=== PATIENT | female | born 1970 | race Caucasian/White ===

== ENCOUNTER → 2017-07-27 09:50 | Outpatient (CLI) | payer MEDICAID, SELFPAY ==
--- NOTE | 2017-07-27 09:56 | MM_ITS ---
MM Dig screening mamm BI w/CAD CAD Screening COMPARISON: 09/29/2015 INDICATION: Screening mammogram, screening for breast cancer ORDERING PHYSICIAN: Angelal Ruiz PATIENT AGE: 46 years TECHNIQUE: Standard CC and MLO images were obtained. R2 CAD reviewed. FINDINGS: There are scattered bilateral benign-appearing calcifications which are unchanged IMPRESSION: Benign findings, no evidence of malignancy BI-RADS Category: 2 Benign Finding(s) RECOMMENDED FOLLOW-UP: 1YR - 1 YEAR FOLLOW-UP (A letter has been sent to the patient regarding results of the study.)
== END ==
PROVIDERS: Family Provider Family Medicine; PCP Family Medicine; Visit Provider Student in an Organized Health Care Education/Training Program
DX: Z12.31 Encounter for screening mammogram for malignant neoplasm of breast (principal)
CPT/HCPCS: 77067

== ENCOUNTER → 2017-11-01 09:03 | Outpatient (CLI) | payer MEDICAID, SELFPAY ==
--- NOTE | 2017-11-01 09:03 | XR_ITS ---
Bilateral Weightbearing Ankle 3 views. HISTORY: Pain ORDERING PHYSICIAN: Ashley Dan DPM PATIENT AGE: 47 years COMPARISON: None FINDINGS: No fracture or dislocation. No lytic or blastic change. There is normal mineralization.. The joint spaces are well-preserved. No significant degenerative/arthritic changes. No erosive changes evident. The talar dome has an unremarkable appearance and the joint space is well-preserved IMPRESSION: Negative ankle, no acute finding
--- NOTE | 2017-11-01 09:03 | XR_ITS ---
XR ankle wt bearing LT min 3V HISTORY: Left ankle pain ORDERING PHYSICIAN: Ashley Dan DPM PATIENT AGE: 47 years COMPARISON: None FINDINGS: There is a bone plate over the distal shaft of the fibula. No acute fracture or dislocation evident. The ankle joint space is well-preserved. Small calcaneal spur is noted. IMPRESSION: Prior ORIF of the distal fibula with no acute finding
== END ==
PROVIDERS: Visit Provider Podiatrist
DX: M25.579 Pain in unspecified ankle and joints of unspecified foot (principal)
CPT/HCPCS: 73610

== ENCOUNTER 2018-01-11 09:00 | Outpatient (RCR) | payer OTHER, SELFPAY ==
--- NOTE | 2017-12-27 10:13 | HMH.PTOPEV ---
PT Outpatient Evaluation Rehab PT Outpatient Evaluation Start: 12/27/17 09:53 Freq: Status: Active Protocol: Document 12/27/17 09:54 DELIA (Rec: 12/27/17 10:13 DELIA [id number]) Electronically Signed By Abdulkadir Patrick, PT 12/27/17 09:54 Outpatient Therapy Subjective History Subjective History Pt is a 47 year old female presenting to outpatient PT with reports of L ankle pain S /P L ankle eversion sprain after an incident while folding laundry at home. Pt reports hx of L ankle fracture requiring ORIF to distal fibula in 1996. Pt recently began oral anti-inflammatory medication that has provided some significant relief. Chief Complaint Pain Swelling Symptom Type Sharp Symptoms Relieved By Rest/Positioning Ice Prescription Meds Symptoms Aggravated By Standing Physical Activity Walking Prior Functional Limitations None Current Functional Limitations Housework Standing Squatting Recreation Activity Walking Stairs Balance Level of pain today (0-10) 2 Pain scale - at its best (0-10) 0 Pain scale - at its worst (0-10) 8 Ankle/Foot Eval Gait Observation General Gait Pattern Observation Antalgic Gait Assistive Device Ambulation Assistive Device None Palpation Tenderness left Ankle/Foot Palpation Findings Tenderness Ankle/Foot Palpation Overall Comment achilles ATF TTP positive ROM right Ankle/Foot Dorsiflexion w/Knee Flexed 18 Active Range of Motion (degrees) Ankle/Foot Plantar Flexion Active Range 60 of Motion (degrees) Ankle/Foot Eversion Active Range of 25 Motion (degrees) Ankle/Foot Inversion Active Range of 35 Motion (degrees) left Ankle/Foot Dorsiflexion w/Knee Flexed 11 Active Range of Motion (degrees) Ankle/Foot Plantar Flexion Active Range 60 of Motion (degrees) Ankle/Foot Eversion Active Range of 22 Motion (degrees) Ankle/Foot Inversion Active Range of 30 Motion (degrees) Ankle/Foot ROM Limitations Soft Tissue Tightness MMT bilateral Ankle Dorsiflexion Streng
== END 2018-01-11 09:01 | disposition home or self-care (01) ==
LOC: PT 09:00
PROVIDERS: Family Provider Family Medicine; PCP Family Medicine; Visit Provider Podiatrist
DX: S93.402A Sprain of unspecified ligament of left ankle, initial encounter (principal)
CPT/HCPCS: 97110; 97112; 97163

== ENCOUNTER → 2018-06-23 08:42 | Outpatient (CLI) | payer OTHER, SELFPAY ==
--- NOTE | 2018-06-23 08:52 | US_ITS ---
MM Dig mamm DX unilat LT CAD, US breast LT complete INDICATION: Palpable abnormality left breast in the axilla ORDERING PHYSICIAN: Sara Valentin PATIENT AGE: 47 years COMPARISON: 07/27/2017, 09/29/2015 TECHNIQUE: Standard images left breast along with left breast ultrasound FINDINGS: Left breast ultrasound: There is a 19 x 16 x 8 mm isoechoic subcutaneous nodule in the left axilla. This area is very difficult to image mammographically. There is relative homogeneous echogenicity. This could represent a sebaceous cyst. Please correlate with clinical findings. Small nodes are present in the axilla. Review of the left breast also demonstrates a 5 mm hypoechoic area at the 10:00 region near the nipple. Immediately deep to this nodule is some enhanced through transmission of sound with decreased through transmission of sound or posterior to the nodule. Left-sided mammogram. Asymmetric density in the left axilla not completely imaged by mammography. May correspond to the palpable abnormality. The remaining breast has unremarkable appearance. IMPRESSION: 19 x 16 x 8 mm isoechoic nodule in the axilla corresponding to the palpable abnormality. Ultrasound findings are nonspecific. This could be due to a sebaceous cyst or lipoma. There are difficult to images on the mammogram. Please correlate with clinical findings and physical exam. Suggest 3 month sonographic follow-up and correlation with physical exam. Negative mammogram and negative ultrasound should not preclude performing biopsy with suspicious palpable abnormalities . BI-RADS Category: 3 Probably Benign Finding Short Term Follow-up RECOMMENDED FOLLOW-UP: 3M - 3 MONTH FOLLOWUP (A letter has been sent to the patient regarding results of the study.)
== END ==
PROVIDERS: PCP Nurse Practitioner Family; Visit Provider Nurse Practitioner Family
DX: L72.3 Sebaceous cyst (principal); R59.0 Localized enlarged lymph nodes; M79.622 Pain in left upper arm
CPT/HCPCS: 76641; 77065

== ENCOUNTER → 2018-09-25 09:38 | Outpatient (CLI) | payer OTHER, SELFPAY ==
--- NOTE | 2018-09-25 09:45 | US_ITS ---
US extremity LT limited HISTORY: Palpable abnormality in the left axilla ITS.REASON: re-evaluate left axillary lesion ORDERING PHYSICIAN: Michael Disla MD PATIENT AGE: 48 years COMPARISON: 06/23/2018 FINDINGS: There is an oval isoechoic to slightly hypoechoic area in the left axilla measuring 14 x 18 x 6 mm. This does appear to elongate and may represent a lipoma. Small nodes are present in the axilla. IMPRESSION: Overall no change in the ISO to hypoechoic nodular subcutaneous area in the left axilla possibly due to a lipoma.
== END ==
PROVIDERS: PCP Family Medicine; Visit Provider Surgery
DX: L72.3 Sebaceous cyst (principal)
CPT/HCPCS: 76882

== ENCOUNTER 2022-06-20 18:37 | Emergency (ER) | payer SELFPAY ==
[2022-06-20] VITALS (7 sets, daily range): BP systolic 122–143; BP diastolic 80–93; PULSE 65–76; RESP 18; TEMP 36.5; O2SAT 92–98; BMI 30.9
[2022-06-20 18:56] LABS: Coronavirus 19, PCR Not Detected (NotDetected); Influenza A, PCR Not Detected (NotDetected); Influenza B, PCR Not Detected (NotDetected)
--- NOTE | 2022-06-20 20:57 | XR_ITS ---
PROCEDURE INFORMATION: Exam: XR Chest Exam date and time: 06/20/2022 10:33 PM Age: 51 years old Clinical indication: Fever TECHNIQUE: Imaging protocol: Radiologic exam of the chest. Views: 2 views. COMPARISON: No relevant prior studies available. FINDINGS: Lungs: Focal density within the right upper lung zone on the PA view projecting over the medial clavicle separate from the anterior costochondral junction of the 1st right rib. The lateral view demonstrates a rounded density anterior to the spine within the lower lung zone. CT scan performed of the abdomen and pelvis today included this region and does not demonstrate a focal abnormality. Pleural spaces: Unremarkable. No pleural effusion. No pneumothorax. Heart/Mediastinum: Unremarkable. No cardiomegaly. Vasculature: Unremarkable. Bones/joints: Unremarkable. IMPRESSION: Small density projecting over the medial right clavicle may represent an inflammatory focus or nodule. Correlation with prior imaging of the chest is recommended. If there is no prior imaging, CT is recommended.
--- NOTE | 2022-06-20 20:57 | PC.NURSE ---
Dr. Frazier at
--- NOTE | 2022-06-20 21:00 | CT_ITS ---
PROCEDURE INFORMATION: Exam: CT Abdomen And Pelvis With Contrast Exam date and time: 06/20/2022 10:49 PM Age: 51 years old Clinical indication: Vomiting; Additional info: Abd pain TECHNIQUE: Imaging protocol: Computed tomography of the abdomen and pelvis with contrast. Radiation optimization: All CT scans at this facility use at least one of these dose optimization techniques: automated exposure control; mA and/or kV adjustment per patient size (includes targeted exams where dose is matched to clinical indication); or iterative reconstruction. Contrast material: ISOVUE; Contrast volume: 75 ml; Contrast route: IV; COMPARISON: CR XR CHEST 2V 06/20/2022 10:33 PM FINDINGS: Lungs: Linear densities at the lung bases either representing scarring or subsegmental atelectasis. Liver: Severe hepatic steatosis is evident. Gallbladder and bile ducts: The gallbladder is absent. There is no biliary ductal dilation. Pancreas: Normal. No ductal dilation. Spleen: Normal. No splenomegaly. Adrenal glands: Normal. No mass. Kidneys and ureters: Normal. No hydronephrosis. Stomach and bowel: Unremarkable. No obstruction. No mucosal thickening. Appendix: No evidence of appendicitis. Intraperitoneal space: Unremarkable. No free air. No significant fluid collection. Vasculature: Unremarkable. No abdominal aortic aneurysm. Lymph nodes: Unremarkable. No enlarged lymph nodes. Urinary bladder: Unremarkable as visualized. Reproductive: Unremarkable as visualized. Bones/joints: Unremarkable. No acute fracture. Soft tissues: There is a prominent upper abdominal fat containing midline ventral hernia. IMPRESSION: 1. There is no acute process within the abdomen pelvis. 2. Prominent fat containing midline ventral hernia in the upper abdomen. 3. Severe hepatic steatosis. 4. Other findings as detailed.
--- NOTE | 2022-06-20 21:00 | HMH.EDHA ---
Discharge Plan Disposition Patient Disposition: Home, Self-Care Prescriptions Prescriptions: New ondansetron HCl 4 mg Tablet 4 mg PO Q8H PRN (Reason: Nausea) Qty: 20 0RF No Action ferrous sulfate 325 mg (65 mg iron) tablet 325 mg PO DAILY 30 Days Qty: 30 Label Comments: amoxicillin 875 mg tablet 875 mg PO BID 10 Days Qty: 20 0RF Referrals Follow up/Referrals: Lesly Alcala MD [Primary Care Provider] - See instructions Clinical Impressions Clinical Impression: Gastroenteritis Instructions Patient Instructions: DI for Vomiting -- Adult Discharge ED Provider: Brandyn Frazier Headache HPI General Chief Complaint: Headache Stated Complaint: abdominal pain Time Seen by Provider: 06/20/22 21:00 Mode of Arrival: Ambulatory Source of Information: Patient, Relative and Medical Record Limitations: No Limitations Description of Symptoms (Recalled from ER Triage Doc. by RN): pt states she has had fever, body aches, headache, tired, and vomiting for 3 days History of Present Illness HPI Narrative: over the last few days with vomiting and fever with abd pain - no diarrhea - with dec po intake Onset (ago): day(s) Related Data Home Medications Medication Instructions Recorded Confirmed ferrous sulfate 325 mg (65 mg 325 mg PO DAILY MAINTENANCE 30 11/01/17 02/23/19 iron) tablet days ##30 Previous Rx's Medication Instructions Recorded amoxicillin 875 mg tablet 875 mg PO BID 10 days #20 tabs 02/23/19 ondansetron HCl 4 mg tablet 4 mg PO Q8H PRN Nausea #20 tabs 06/21/22 Allergies Allergy/AdvReac Type Severity Reaction Status Date / Time No Known Allergies Allergy Verified 02/23/19 16:08 [facility] History Hepatitis A Screen Attestation statement:: This patient has been screened for Hepatitis A risk factors. I have reviewed the patient's past medical history: Yes Medical History: Denies: Asthma, Cancer, Chronic Obstructive Pulmonary Disease (COPD), Diabetes Mellitus Type 1, Diabetes Mellitus Type 2, Hyperlipidemia or Hypertension Laterality Cases: Left: Other Other Surgeries: Yes Cholecystectomy and Other Amputation: No Fractures: Yes Social History Smoking Status: Never smoker # Packs/Day (cigarettes): 0 #Yrs smoked (if former smoker): 0 Alcohol Intake: never Alcohol Intake Frequency:: other Substance Use Type: denies use Occupational Status: other Housing: house Household Members: family Family Hx:: Cancer and Diabetes PFSH PFSH Social History Smoking Status: Never smoker alcohol intake: never substance use type: denies use current occupational status: other Travel in the last 8 weeks: None household members: family housing: house ROS Obtained: Yes All systems reviewed & no additional complaints except as documented Physical Exam General General appearance: alert Head Head exam: normocephalic Eye Eye exam: Present PERRL and EOMI ENT ENT exam: Present mucous membranes dry Neck Neck exam: Present trachea midline Respiratory Respiratory exam: Present normal lung sounds bilaterally Cardiovascular Cardiovascular exam: Present regular rate Abdominal Exam Abdominal exam: Present soft; Absent tenderness or guarding Extremities Exam Extremities exam: Present normal inspection Neurological Exam Neurological exam: Present alert, oriented X3 and CN II-XII intact Psychiatric Psychiatric exam: Present normal affect Skin Skin exam: Absent intact Medical Decision Making Medical Records Medical records reviewed: Yes I reviewed the patient's medical records. Samy Inquiry Pt receiving controlled substance: No Vital Signs: 06/20/22 18:49 06/20/22 19:00 06/20/22 19:30 Temperature 97.7 F Temperature Source Oral Pulse Rate 72 70 Pulse Rate [Right Radial] 76 Respiratory Rate 18 Blood Pressure 133/82 122/80 Blood Pressure [Right Arm] 139/87 Blood Pressure Mean [Right Arm] 104 Blood Pressure Source [Right Arm] Automatic Cuff Blo
[2022-06-20 22:00] LABS: Basophils % 0.4 % (0.1-2.0); Eosinophils % 0.2 % (0.1-12.0); Hematocrit 41.2 % (37.0-47.0); Hemoglobin 13.6 g/dL (12.2-16.2); Lymphocytes # 1.2 K/mm3 (0.7-4.5); Lymphocytes % 12.1 % (10-50); Mean Corpuscular HGB Conc 33.1 g/dL (31.8-35.4); Mean Corpuscular Hemoglobin 27.7 pg (27.0-31.2); Mean Corpuscular Volume 83.8 fl (81-99); Mean Platelet Volume 9.4 fl (7.4-10.4); Monocytes # 0.7 K/mm3 (0.1-1.0); Neutrophils # 7.8 K/mm3 (1.8-7.8); Neutrophils % 80.2 % (37.0-80.0); Platelet Count 178 K/mm3 (142-424); Red Blood Count 4.91 M/mm3 (4.20-5.40); Red Cell Distribution Width 14.9 % (11.5-17.5); White Blood Count 9.7 K/mm3 (4.8-10.8)
[2022-06-20 22:14] LABS: Chloride 99 mmol/L (98-107)
[2022-06-20 22:15] LABS: Potassium 3.8 mmoL/L (3.5-5.1); Sodium 137 mmol/L (136-145)
[2022-06-20 22:16] LABS: Lipase 67 U/L (23-300)
[2022-06-20 22:17] LABS: Alanine Aminotransferase 28 U/L (12-78); Amylase 61 U/L (30-110); Aspartate Amino Transferase 39 U/L (14-36); Blood Urea Nitrogen 13 mg/dl (7-17); Creatinine Clearance Estimated 156 mL/min (50-200); Estimated Glomerular Filt Rate 106 ml/min (>60); GFR (African American) 129 ML/MIN (>60)
[2022-06-20 22:18] LABS: Albumin Level 4.4 g/dl (3.5-5.0); Albumin/Globulin Ratio 1.3 (1.1-1.8); Alkaline Phosphatase 76 U/L (38-126); Anion Gap 12.8 mEq/L (5-15); Bilirubin,Total 0.8 mg/dl (0.2-1.3); Calcium 8.8 mg/dl (8.4-10.2); Carbon Dioxide 29 mmol/L (22.0-30.0); Globulin 3.5 g/dL (1.3-3.2); Glucose 107 mg/dl (74-100); Total Protein,Serum 7.9 g/dl (6.3-8.2)
--- NOTE | 2022-06-20 22:41 | PC.NURSE ---
Pt gone to RAD
[2022-06-20 23:46] LABS: Microscopic, Urine URINE MICROSCOPIC (MICROSCOPIC)
[2022-06-20 23:47] LABS: Appearance,Urine CLEAR (Clear); Bilirubin,Urine Negative (Negative); Blood, Urine TRACE-I (Negative); Color,Urine YELLOW (Yellow); Glucose,Urine (UA) Negative (Negative); Ketones,Urine 1+ (Negative); Leukocyte Esterase,Urine Negative (Negative); Nitrate,Urine Negative (Negative); PH,Urine 5.5 (5.0-8.5); Protein,Urine 1+ (Negative); Urobilinogen,Urine 0.2 EU/dl (0.2)
--- NOTE | 2022-06-20 23:56 | PC.NURSE ---
Dr. Frazier at BS updating pt on POC
[2022-06-20 23:58] LABS: Mucus,Urine 4+ /lpf
[2022-06-21] VITALS: BP 124/80; PULSE 68; O2SAT 96
[2022-06-21 00:17] VITALS: BP 125/82; PULSE 72; RESP 18; TEMP 36.6; O2SAT 99
== END 2022-06-21 00:20 | disposition home or self-care (01) ==
PROVIDERS: Emergency Medicine; Emergency Provider Emergency Medicine; PCP Family Medicine
DX: R10.9 Unspecified abdominal pain (principal); R11.2 Nausea with vomiting, unspecified; R50.9 Fever, unspecified; R05.9 Cough, unspecified; R51.9 Headache, unspecified; M79.10 Myalgia, unspecified site; Z20.822 Contact with and (suspected) exposure to COVID-19; Z79.899 Other long term (current) drug therapy; Z88.3 Allergy status to other anti-infective agents; Z80.9 Family history of malignant neoplasm, unspecified
CPT/HCPCS: 71046; 74177; 80053; 81001; 82150; 83690; 85025; 87040; 96361; 96374; 99285; C9803; J2405; Q9967; U0003; U0005

== ENCOUNTER → 2022-11-19 10:50 | Outpatient (CLI) | payer OTHER, SELFPAY ==
--- NOTE | 2022-11-19 11:00 | ECG_ITS ---
APPROVED REPORT Exam: Resting ECG HR:78 bpm ECG Measurements Heart Rate 78 AXES NM 156 P 42 QRSd 86 QRS 48 QT 385 T 48 QTc 418 Conclusion SINUS RHYTHM LOW QRS VOLTAGE IN PRECORDIAL LEADS [QRS DEFLECTION < 1.0 mV IN CHEST LEADS] BORDERLINE ECG UNCONFIRMED REPORT Electronically signed by : Ramsey Ferreira MD 11/19/2022 14:24:24
[2022-11-19 11:03] LABS: Microscopic, Urine URINE MICROSCOPIC (MICROSCOPIC)
[2022-11-19 12:02] LABS: Appearance,Urine CLEAR (Clear); Bilirubin,Urine Negative (Negative); Blood, Urine Negative (Negative); Color,Urine YELLOW (Yellow); Glucose,Urine (UA) Negative (Negative); Ketones,Urine Negative (Negative); Leukocyte Esterase,Urine Negative (Negative); Nitrate,Urine Negative (Negative); Protein,Urine Negative (Negative); Urobilinogen,Urine 0.2 EU/dl (0.2)
[2022-11-19 12:04] LABS: Basophils % 0.6 % (0.1-2.0); Eosinophils # 0.2 K/mm3 (0.0-0.4); Eosinophils % 2.5 % (0.1-12.0); Hematocrit 41.5 % (37.0-47.0); Hemoglobin 13.2 g/dL (12.2-16.2); Lymphocytes # 1.8 K/mm3 (0.7-4.5); Lymphocytes % 23.4 % (10-50); Mean Corpuscular HGB Conc 31.8 g/dL (31.8-35.4); Mean Corpuscular Hemoglobin 26.6 pg (27.0-31.2); Mean Corpuscular Volume 83.9 fl (81-99); Mean Platelet Volume 8.7 fl (7.4-10.4); Monocytes # 0.4 K/mm3 (0.1-1.0); Monocytes % 4.6 % (1.7-9.3); Neutrophils # 5.2 K/mm3 (1.8-7.8); Neutrophils % 68.8 % (37.0-80.0); Platelet Count 211 K/mm3 (142-424); Red Blood Count 4.95 M/mm3 (4.20-5.40); Red Cell Distribution Width 15.5 % (11.5-17.5); White Blood Count 7.6 K/mm3 (4.8-10.8)
[2022-11-19 12:28] LABS: Anion Gap 12.9 mEq/L (5-15); Blood Urea Nitrogen 8 mg/dl (7-17); Calcium 8.8 mg/dl (8.4-10.2); Carbon Dioxide 31 mmol/L (22.0-30.0); Chloride 102 mmol/L (98-107); Estimated Glomerular Filt Rate 106 ml/min (>60); GFR (African American) 128 ML/MIN (>60); Glucose 115 mg/dl (74-100); Potassium 4.9 mmoL/L (3.5-5.1); Sodium 141 mmol/L (136-145)
[2022-11-19 12:43] LABS: Bacteria,Urine 3+ /lpf
== END ==
PROVIDERS: PCP Family Medicine; Visit Provider Surgery
DX: Z01.818 Encounter for other preprocedural examination (principal); K46.9 Unspecified abdominal hernia without obstruction or gangrene; K43.2 Incisional hernia without obstruction or gangrene
CPT/HCPCS: 36415; 80048; 81001; 85025; 87086; 93005

== ENCOUNTER 2022-12-16 06:28 | Day surgery (SDC) | payer OTHER, SELFPAY ==
[2022-12-13 16:54] VITALS: BMI 30.7
[2022-12-16] VITALS (11 sets, daily range): BP systolic 129–152; BP diastolic 71–96; PULSE 56–67; RESP 15–18; TEMP 36.2–43; O2SAT 92–97
--- NOTE | 2022-12-16 07:29 | P.PN_ITS ---
[facility] Disclaimer: The information contained in this section may have been updated after the patient was seen, as this information can be updated by other users. Medical History No significant past medical history Surgical History History of laparoscopic cholecystectomy History of left ankle joint replacement History of lung surgery Family History (Updated 12/16/22 @ 06:41 by Ken Brito RN) Other Family history of alpha 1 antitrypsin deficiency Family history of diabetes mellitus Family history of stroke Social History Smoking Status: Never smoker alcohol intake: never substance use type: denies use current occupational status: unemployed Travel in the last 8 weeks: None household members: family housing: house [facility] Anesthesia Checklist Patient Identification Patient Identification: Arm Band Structural Data Admitted From: Home Planned Operative Procedure/s: Open Incisional Hernia Repair Consent for Planned Operative Procedure(s) Verified: Yes Verified Documents: Surgical Consent and History and Physical NPO Status Verified Time NPO: 00:00 Additional verifications Anesthesia Reactions: No Hx Blood Transfusions: No Blood Transfusion Reaction: No Airway Assessment C-Spine Mobility Assessed: Yes TMJ Mobility Assessed: Yes Dentition: Good Dentition Neurological Assessment Level of Consciousness: Awake and Alert Anesthesia Plan Anesthesia Risk discussed: Yes Anesthesia Plan: Verified ASA Class: II Anesthesia Type: General
--- NOTE | 2022-12-16 09:23 | P.OP_ITS ---
Date of procedure: 12/16/22 Pre-op Diagnosis:: Incisional hernia Post-op Diagnosis:: Same Procedure performed:: Open incisional hernia repair with 8.0 cm Ventralex mesh Surgeon:: Michael Disla MD MONOGRAM OPERATOR:: Caden Menchaca Anesthesia: GETA Estimated blood loss (mL): 15 Operative findings:: Complex 4 cm defect with incarcerated omentum/preperitoneal fat Operative note:: After informed consent was obtained the patient was taken to the operating room and placed in the supine position. General anesthesia was induced and her abdomen was prepped and draped in a sterile fashion. After infiltration with local anesthetic a transverse incision was made over the palpable defect. A combination of electrocautery, sharp dissection, and blunt dissection was utilized to transect through the deep subcutaneous tissue. Incarcerated omentum and preperitoneal fat were noted. Dissection around the fascial margin was completed with electrocautery. A small portion of incarcerated preperitoneal fat and omentum was resected. An 8.0 cm Ventralex mesh was secured in position with interrupted Ethibond suture. Deep subcutaneous tissue was then reapproximated with running 2-0 Vicryl. Skin was closed with running 4-0 Monocryl in a subcuticular fashion. Steri-Strips were applied. The patient's anesthetic agents were reversed and she was extubated prior to transfer to recovery. Condition: stable Disposition: PACU Specimens:: None Complications:: No immediate
--- NOTE | 2022-12-16 09:25 | EXP.ANES.I ---
[facility] Anesthesia Record Part I Anesthesia Record I Intake, IV Amount: 1,000 Estimated blood loss (mL): 5 Urine output (mL): 0 Blood Products used (#): none Blood Pressure: 136/88 SaO2: 92 Pulse Rate: 67 Respiratory Rate: 16 Temperature: 98 F Patient is:: Drowsy and Stable Stable to PACU at:: 09:25
--- NOTE | 2022-12-16 10:08 | EXP.ANES.II ---
[facility] Anesthesia Record Part II Anesthesia Record Part II Discharge Time: 09:55 Destination: Surgical Day Care (OP Surgery) PACU nurse assessment reviewed?: Yes Patient Condition:: Good Anesthesia Complications:: None Swallowing reflex intact?: Yes Cyanosis?: No Blood Pressure: 139/84 Pulse Rate: 67 Temperature: 97.8 F Mental Status: Alert & Oriented Pain level:: 0 Nausea and/or vomitting:: None Intake, IV Amount: 0
== END 2022-12-16 10:30 | disposition home or self-care (01) ==
PROVIDERS: PCP Family Medicine; Visit Provider Surgery
PROC: (CPT 49594; principal; 2022-12-16 08:15)
DX: K43.2 Incisional hernia without obstruction or gangrene (principal); Z79.899 Other long term (current) drug therapy
CPT/HCPCS: 49594; 96374; C1781; J2405

== ENCOUNTER → 2023-03-03 10:52 | Outpatient (CLI) | payer OTHER, SELFPAY ==
--- NOTE | 2023-03-03 10:55 | MM_ITS ---
PROCEDURE INFORMATION: Exam: MG Bilateral Screening 3D Mammography Exam date and time: 03/03/2023 11:03 AM Age: 52 years old Clinical indication: Screening. No family history of breast cancer. No reported concern related to the left axilla. TECHNIQUE: Imaging protocol: Bilateral Screening tomosynthesis and 2D mammography including computer-aided detection (CAD) when performed. COMPARISON: 1. MG DXLT MM Dig mamm DX unilat LT CAD 06/23/2018 9:42 AM 2. MG SCBI MM Dig screening mamm BI w/CAD 07/27/2017 10:06 AM 3. MG DMDB DIG MAMM-DX [place] 09/29/2015 1:10 PM 4. BREASTLT US breast LT complete 06/23/2018 8:53 AM FINDINGS: MAMMOGRAPHY: Breast composition: There are scattered areas of fibroglandular density. Mass: In the right upper outer quadrant, middle 3rd, questionable 0.5 cm lobulated mass with related calcifications,CC frame 33 and MLO frame 18. Also in the right upper outer quadrant, posterior 3rd, questionable 0.5 cm mass/circumscribed asymmetry, CC frame 20, and possibly MLO frame 32. In the left outer breast, posterior 3rd, questionable 1.0 cm lobulated mass/circumscribed asymmetry (cystic change with noted at 10 o'clock on 06/23/2018) - the related punctate calcifications over 2.0 cm appear similar to 06/23/2018. Architectural distortion: None. Calcifications: See above. Asymmetric density: None. Skin thickening: None. Axillary adenopathy: None. IMPRESSION: Patient will be recalled for right diagnostic mammography with magnification views in CC and true lateral as well as bilateral sonography for further evaluation of questionable bilateral masses with calcifications. ASSESSMENT: BI-RADS Category 0: Incomplete- Need Additional Imaging Evaluation and/or Prior Mammograms for Comparison
== END ==
PROVIDERS: PCP Nurse Practitioner Family; Visit Provider Nurse Practitioner Family
DX: Z12.31 Encounter for screening mammogram for malignant neoplasm of breast (principal); N63.21 Unspecified lump in the left breast, upper outer quadrant
CPT/HCPCS: 77063; 77067

== ENCOUNTER → 2023-04-18 14:28 | Outpatient (CLI) | payer OTHER, SELFPAY ==
--- NOTE | 2023-04-18 14:32 | MM_ITS ---
PROCEDURE INFORMATION: Exam: US Right Breast, Complete US Left Breast, Complete MG Right Diagnostic Breast Tomosynthesis Exam date and time: 04/18/2023 3:11 PM Age: 52 years old Clinical indication: Callback for additional assessment of right upper outer middle 1/3 0.5 cm lobulated mass with associated calcifications and right upper outer posterior 1/3 0.5 cm mass and left outer posterior 1/3 questionable 1 cm mass . TECHNIQUE: Imaging protocol: Complete ultrasound of all four quadrants of the right breast and the retroareolar regions, including ultrasound of the axilla when performed. Complete ultrasound of all four quadrants of the left breast and the retroareolar regions, including ultrasound of the axilla when performed. Right Diagnostic tomosynthesis and 2D mammography including computer-aided detection (CAD) when performed. Unilateral or bilateral exam. COMPARISON: MG MM DIG MAMM DX UNILAT RT CAD 04/18/2023 2:28 PM FINDINGS: MAMMOGRAPHY: Spot magnification views of the right breast were performed In the upper outer right middle 1/3 about 7 cm from the nipple, there is a circumscribed lobulated 0.7 cm mass without associated architectural distortion or suspicious calcifications. In the slightly upper outer posterior right breast about 12 cm from the nipple, there is a circumscribed 0.4 cm mass with possible central hypodensity thought to reflect intramammary lymph node. No associated architectural distortion or suspicious calcifications ULTRASOUND: Bilateral 4 quadrant and retroareolar ultrasound and bilateral axillary ultrasound Right: In the region of mammographic interest, right 9 o'clock 5 cm from the nipple and right 9 o'clock 9 cm from the nipple there are circumscribed hypoechoic horizontally oriented structures with possible central elevated echotexture measuring 0.8 x 0.3 x 0.4 cm and 0.3 x 0.4 x 0.2 cm respectively. These have features of intramammary lymph nodes. No suspicious solid or cystic mass is present No architectural distortion or shadowing Left: Only normal glandular structures are present in the regions assessed No suspicious solid or cystic mass is present. No benign-appearing solid or cystic mass is present. No architectural distortion or shadowing is present. No axillary adenopathy is present. IMPRESSION: Six-month follow-up targeted right breast ultrasound is recommended to assess stability of 2 probably benign subcentimeter right 9 o'clock breast masses, both of which demonstrate features suggestive of intramammary lymph nodes ASSESSMENT: BI-RADS category 3: Probably benign
== END ==
PROVIDERS: PCP Family Medicine; Visit Provider Nurse Practitioner Family
DX: N63.10 Unspecified lump in the right breast, unspecified quadrant (principal); N63.20 Unspecified lump in the left breast, unspecified quadrant
CPT/HCPCS: 76641; 77061; 77065; G0279

== ENCOUNTER → 2023-05-24 12:29 | Outpatient (CLI) | payer OTHER, SELFPAY ==
--- NOTE | 2023-05-24 12:30 | US_ITS ---
PROCEDURE: US TRANSVAGINAL CLINICAL INDICATION: post menopausal bleeding COMPARISON: No exams were available for comparison FINDINGS: Transvaginal sonographic images of the pelvis were obtained. UTERUS: 7.7 cm x 5.5 cmx 3.8 cm with a combined endometrial thickness of 9.5 mm. There are multiple small nabothian cysts within the cervix. The endometrium has an irregular appearance along the basalis possibly consistent with adenomyosis. The endometrium is thickened for a postmenopausal woman. LEFT OVARY: 2.0 cmx1.5 cmx0.9cm with a volume of 1.3ml. RIGHT OVARY: 2.2 cmx 2.2 cmx1.3 cm with a volume of 3.2ml. Both ovaries are seen and appear normal. Doppler flow to both ovaries are seen. There is no fluid in the cul-de-sac. IMPRESSION: 1. Anteverted uterus normal in shape and size. 2. The endometrium is thickened for a postmenopausal woman. It has an irregular basalis possibly consistent with adenomyosis. Suggest endometrial sampling if this has not already been done. 3. Both ovaries are seen and appear normal. They are atrophic in appearance. 4. No fluid in the cul-de-sac. Dictated by: Chandra Blackwell MD 05/24/2023 15:40 Chandra Blackwell MD in OV 05/24/2023 15:40
== END ==
PROVIDERS: PCP Family Medicine; Visit Provider Obstetrics & Gynecology
DX: N95.0 Postmenopausal bleeding (principal)
CPT/HCPCS: 76830

== ENCOUNTER 2023-08-16 12:24 | Outpatient (CLI) | payer OTHER, SELFPAY ==
--- NOTE | 2023-08-16 12:25 | US_ITS ---
PROCEDURE: US TRANSVAGINAL CLINICAL INDICATION: abnormal uterine and vaginal bleeding COMPARISON: No exams were available for comparison FINDINGS: Transvaginal sonographic images of the pelvis were obtained. UTERUS: 7.9 cm x 5.5 cmx 3.5 cm anteverted with a combined endometrial thickness of 9.2 mm. There are multiple nabothian cysts in the cervix, the largest measures 7.6 mm. There are 2 small fluid-filled areas within the endometrium. The basalis of the endometrium has an irregular appearance possibly consistent with adenomyosis. There are 2 small cystic areas within the anterior myometrium. LEFT OVARY: 1.6 cmx1.6 cmx0.8cm with a volume of 1.1ml. RIGHT OVARY: 2.3cmx 1.9 cmx1.0cm with a volume of 2.4ml. Both ovaries are seen and appear normal. Doppler flow to both ovaries are seen. There is no fluid in the cul-de-sac. IMPRESSION: 1. Anteverted uterus normal in shape and size. There are multiple nabothian cysts in the cervix. There are 2 small cystic areas within the anterior myometrium. 2. The endometrium is thickened at 9.2 mm. The base of the endometrium is irregular possibly consistent with adenomyosis. There is a small amount of fluid within the endometrial cavity. 3. Both ovaries are seen and appear atrophic. 4. No fluid in the cul-de-sac. Dictated by: Chandra Blackwell MD 08/16/2023 15:43 Chandra Blackwell MD in [place] 08/16/2023 15:43
== END 2023-08-16 23:59 ==
LOC: RAD 12:25
PROVIDERS: PCP Family Medicine; Visit Provider Obstetrics & Gynecology
DX: N93.9 Abnormal uterine and vaginal bleeding, unspecified (principal)
CPT/HCPCS: 76830

== ENCOUNTER 2024-02-06 19:41 | Emergency (ER) | payer OTHER, SELFPAY ==
[2024-02-06 19:43] VITALS: BP 123/82; PULSE 88; RESP 16; TEMP 37.3; O2SAT 96; BMI 35.0
--- NOTE | 2024-02-06 20:27 | ED_ITS ---
Discharge Plan Disposition Patient Disposition: Home, Self-Care Prescriptions Prescriptions: No Action loratadine [Claritin] 10 mg Tablet 10 mg PO DAILY Referrals Follow up/Referrals: Lesly Alcala MD [Primary Care Provider] - See instructions Shawn Tucker DO [Staff Physician] - See instructions Activity Restrictions/Add. Instructions Additional Instructions/Restrictions: Please take Tylenol alternating with Motrin every 4 hours as needed for pain. I referred you to Dr. Tucker. Please call in the morning to make an appointment. Return to the ER for any worsening signs or symptoms as needed. Clinical Impressions Clinical Impression: Injury of knee, left Qualifiers: Encounter type: initial encounter Qualified Code(s): S89.92XA - Unspecified injury of left lower leg, initial encounter Instructions Patient Instructions: DI for Knee Pain Discharge ED Provider: Asim Thornton General Adult HPI <NEO Arias - Last Filed: 02/06/24 22:09> General Chief complaint: Extremity Injury, Lower Stated complaint: AO 02/06/241931 Left leg injury Time Seen by Provider: 02/06/24 20:27 History of Present Illness HPI narrative: Patient presents for evaluation of left knee injury. Patient states that she was at the [facility] and stepped off of a rind feeling a pop in her posterior left knee. Patient has been able to ambulate on it however she still reports it is tender. She has previous ORIF of the distal fibula of the same leg. Related Data Home Medications Medication Instructions Recorded Confirmed loratadine 10 mg tablet (Claritin) 10 mg PO DAILY allergies 12/13/22 08/24/23 Allergies Allergy/AdvReac Type Severity Reaction Status Date / Time No Known Allergies Allergy Verified 08/24/23 09:56 PFS <NEO Arias - Last Filed: 02/06/24 22:09> [facility] Disclaimer: The information contained in this section may have been updated after the patient was seen, as this information can be updated by other users. Medical History No significant past medical history Surgical History History of hernia repair History of laparoscopic cholecystectomy History of left ankle joint replacement History of lung surgery Family History Mother Cancer Pancreatic Other Family history of alpha 1 antitrypsin deficiency Family history of diabetes mellitus Family history of stroke Social History Smoking Status: Never smoker alcohol intake: never substance use type: denies use current occupational status: unemployed Travel in the last 8 weeks: None household members: family housing: house <NEO Arias - Last Filed: 02/06/24 22:09> ROS Obtained: Yes Systems reviewed as appropriate & no additional complaints except as documented Physical Exam <NEO Arias - Last Filed: 02/06/24 22:09> General General appearance: alert and in no apparent distress Respiratory Respiratory exam: Present normal lung sounds bilaterally Cardiovascular Cardiovascular exam: Present regular rate and normal rhythm Extremities Exam Extremities exam: Present normal inspection Expanded Lower Extremity Exam Left: Leg image: 2 1. Tenderness to palpation. No obvious deformity no ecchymosis no edema no swelling. No palpable cords. Knee exam: Present normal inspection, full ROM, tenderness (Anteriorly) and anterior drawer sign; Absent laxity with valgus or laxity with varus Neurological Exam Neurological exam: Present alert and oriented X3 Medical Decision Making <NEO Arias - Last Filed: 02/06/24 22:09> Medical Records Medical records reviewed: Yes I reviewed the patient's medical records. Samy Inquiry Pt receiving controlled substance: No Vital Signs: 02/06/24 19:43 Temperature 99.1 F Temperature Source Oral Pulse Rate [Right] 88 Respiratory Rate 16 Blood Pressure [Right Arm] 123/82 Blood Pressure Mean [Right Arm] 95 Blood Pressure Source [Right Arm] Automatic Cuff Blood Pressure Position [Right Arm] Sitting 02 Sat by Pulse Oximetry 96 Oxygen Delivery Method Room Air Lab Data Lab results reviewed: Yes I reviewed the patient's lab results. Orders (Tests/Meds): ED MEDICATIONS Discontinued Medications Generic Name Dose Route Start Last Admin Trade Name Freq PRN Reason Stop Dose Admin Acetaminophen 1,000 mg 02/06/24 20:57 02/06/24 21:07 Acetaminophen 500mg Tab PO 02/06/24 20:58 1,000 mg ONCE ONE Administration Ibuprofen 800 mg 02/06/24 20:57 02/06/24 21:07 Ibuprofen 400 Mg Tablet PO 02/06/24 20:58 800 mg ONCE ONE Administration ORDERS Category Date Time Status Knee XR left 3 views [XR knee LT 3V] Stat Exams 02/06/24 20:55 Completed Tibia/fibula XR left 2 views [XR tibia fibula LT 2V] Exams 02/06/24 20:55 Completed Stat Medical Decision Narrative: In summary patient is a 53-year-old female who presents to the emergency department for evaluation of left knee pain. Patient is hemodynamically stable upon arrival, afebrile. Physical exam is remarkable for tenderness to palpation in popliteal fossa of the left knee without any evidence of edema swelling joint laxity ecchymosis or bony deformity. Patient is neurovascular tact distally.. Differential diagnosis includes strain versus sprain versus dislocation versus fracture etc. Initial workup will be conducted with plain film x-ray. Initial interventions include Toradol Motrin. Initial workup reviewed by me shows no acute fracture, pulm interpretation with plain film x-ray. Upon repeat evaluation had a little improvement after initial intervention. Given this patient is appropriate for discharge with an Lei wrap and crutches with referral to Dr. Tucker for follow-up. <Asim Thornton MD - Last Filed: 02/06/24 22:18> Vital Signs: 02/06/24 19:43 Temperature 99.1 F Temperature Source Oral Pulse Rate [Right] 88 Respiratory Rate 16 Blood Pressure [Right Arm] 123/82 Blood Pressure Mean [Right Arm] 95 Blood Pressure Source [Right Arm] Automatic Cuff Blood Pressure Position [Right Arm] Sitting 02 Sat by Pulse Oximetry 96 Oxygen Delivery Method Room Air Orders (Tests/Meds): ED MEDICATIONS Discontinued Medications Generic Name Dose Route Start Last Admin Trade Name Kayla PRN Reason Stop Dose Admin Acetaminophen 1,000 mg 02/06/24 20:57 02/06/24 21:07 Acetaminophen 500mg Tab PO 02/06/24 20:58 1,000 mg ONCE ONE Administration Ibuprofen 800 mg 02/06/24 20:57 02/06/24 21:07 Ibuprofen 400 Mg Tablet PO 02/06/24 20:58 800 mg ONCE ONE Administration ORDERS Category Date Time Status Knee XR left 3 views [XR knee LT 3V] Stat Exams 02/06/24 20:55 Completed Tibia/fibula XR left 2 views [XR tibia fibula LT 2V] Exams 02/06/24 20:55 Completed Stat Medical Decision Narrative: In summary patient is a 53-year-old female who presents to the emergency department for evaluation of left knee pain. Patient is hemodynamically stable upon arrival, afebrile. Physical exam is remarkable for tenderness to palpation in popliteal fossa of the left knee without any evidence of edema swelling joint laxity ecchymosis or bony deformity. Patient is neurovascular tact distally.. Differential diagnosis includes strain versus sprain versus dislocation versus fracture etc. Initial workup will be conducted with plain film x-ray. Initial interventions include Toradol Motrin. Initial workup reviewed by me shows no acute fracture, pulm interpretation with plain film x-ray. Upon repeat evaluation had a little improvement after initial intervention. Given this patient is appropriate for discharge with an Lei wrap and crutches with referral to Dr. Tucker for follow-up. I was consulted by the MADAY, and we discussed the complexity of the problems being addressed. I approved the treatment and management plan for this patient's care in the emergency department, thus performing a substantive portion of the medical decision making. Asim Thornton MD Critical Care <NEO Arias - Last Filed: 02/06/24 22:09> Critical Care Time Critical Care Time: No
--- NOTE | 2024-02-06 20:35 | PC.NURSE ---
TRN to waiting room to update patient with patient permission on plan of care.
--- NOTE | 2024-02-06 20:55 | XR_ITS ---
PROCEDURE INFORMATION: Exam: XR Left Knee Exam date and time: 02/06/2024 9:10 PM Age: 53 years old Clinical indication: Pain; Knee; Left; Additional info: Trauma TECHNIQUE: Imaging protocol: Radiologic exam of the left knee. Views: 3 views. Total images: 3 COMPARISON: EXTLL US extremity LT limited 09/25/2018 9:56 AM FINDINGS: Bones/joints: No acute fracture, joint dislocation, or joint effusion. No concerning bone lesions or calcifications. Unremarkable joint spaces. Soft tissues: Unremarkable soft tissues. IMPRESSION: Negative left knee.
--- NOTE | 2024-02-06 20:55 | XR_ITS ---
PROCEDURE INFORMATION: Exam: XR Left Tibia and Fibula Exam date and time: 02/06/2024 9:12 PM Age: 53 years old Clinical indication: Pain; Lower leg; Left; Additional info: Trauma TECHNIQUE: Imaging protocol: Radiologic exam of the left tibia and fibula. Views: 2 views. Total images: 4 COMPARISON: CR ANKCMLT XR ankle LT min 3V 12/08/2017 2:41 PM FINDINGS: Bones/joints: No acute fracture or joint dislocation. Remote deformity distal fibula, status post ORIF. No hardware loosening. No concerning bone lesions or calcifications. Mild degenerative change tibiotalar joint. Prominent calcaneal enthesophytes at the insertion of the Achilles tendon and plantar fascia. Soft tissues: Mild soft tissue swelling and edema distally. IMPRESSION: 1. No acute osseous abnormality. 2. Mild distal soft tissue swelling and edema. 3. Additional chronic findings.
[2024-02-06] MEDS: IBUPROFEN 400 MG TABLET 800 MG PO (21:07)
[2024-02-06] MEDS: ACETAMINOPHEN 500MG TAB 1000 MG PO (21:07)
--- NOTE | 2024-02-06 22:13 | PC.NURSE ---
Pt given acee wrap and crutches with instructions on care and use. Pt demonstrated proper use. CR
[2024-02-06 22:18] VITALS: BP 120/77; PULSE 74; RESP 16; TEMP 36.7; O2SAT 95
== END 2024-02-06 22:18 | disposition home or self-care (01) ==
PROVIDERS: Emergency Provider Emergency Medicine; PCP Family Medicine
DX: S89.92XA Unspecified injury of left lower leg, initial encounter (principal); X50.0XXA Overexertion from strenuous movement or load, initial encounter
CPT/HCPCS: 73562; 73590; 99283

== ENCOUNTER 2024-02-22 12:41 | Outpatient (CLI) | payer OTHER, SELFPAY ==
--- NOTE | 2024-02-22 12:41 | US_ITS ---
PROCEDURE: US TRANSVAGINAL CLINICAL INDICATION: post menopausal bleeding endometrial thickening COMPARISON: US US TRANSVAGINAL from 05/24/2023 US US TRANSVAGINAL from 08/16/2023 FINDINGS: Transvaginal sonographic images of the pelvis were obtained. UTERUS: 7.8cm x 5.9 cmx 3.8 cm anteverted with a combined endometrial thickness of 12.5mm. There is fluid within the endometrium. There are least 2 endometrial polyps within the endometrial cavity. They measures 7 mm and 9 mm respectively. The fundus of the uterus appears heterogenous and there may be adenomyosis here. LEFT OVARY: 1.9 cmx2.0cmx1.2cm with a volume of 2.4ml. RIGHT OVARY: 2.4 cmx 1.6 cmx1.3cm with a volume of 2.6ml. Both ovaries are seen and appear normal. Doppler flow to both ovaries are seen. There is no fluid in the cul-de-sac. IMPRESSION: 1. Anteverted uterus normal in shape and size. The endometrium is abnormally thickened measuring 12.5 mm. 2. There is fluid within the endometrial cavity. 3. There appears to be a least 2 separate polyps within the endometrial cavity, the largest measuring 9 mm. 4. The fundus of the uterus is heterogenous which may represent adenomyosis. 5. Both ovaries are seen and appear normal. 6. No fluid in the cul-de-sac. Dictated by: Chandra Blackwell MD 02/22/2024 14:30 Chandra Blackwell MD in [place] 02/22/2024 14:30
== END 2024-02-22 23:59 | disposition home or self-care (01) ==
LOC: RAD 12:41
PROVIDERS: PCP Family Medicine; Visit Provider Obstetrics & Gynecology
DX: N95.0 Postmenopausal bleeding (principal); R93.89 Abnormal findings on diagnostic imaging of other specified body structures
CPT/HCPCS: 76830

== ENCOUNTER 2024-02-24 08:24 | Outpatient (CLI) | payer OTHER, SELFPAY ==
[2024-02-24 08:39] LABS: Basophils # 0.1 K/mm3 (0-0.2); Basophils % 0.8 % (0.1-2.0); Eosinophils # 0.1 K/mm3 (0.0-0.4); Eosinophils % 2.3 % (0.1-12.0); Hematocrit 42.3 % (37.0-47.0); Hemoglobin 13.2 g/dL (12.2-16.2); Lymphocytes # 1.3 K/mm3 (0.7-4.5); Lymphocytes % 20.5 % (10-50); Mean Corpuscular HGB Conc 31.3 g/dL (31.8-35.4); Mean Corpuscular Hemoglobin 27.5 pg (27.0-31.2); Mean Platelet Volume 9.3 fl (7.4-10.4); Monocytes # 0.3 K/mm3 (0.1-1.0); Monocytes % 4.7 % (1.7-9.3); Neutrophils # 4.5 K/mm3 (1.8-7.8); Neutrophils % 71.7 % (37.0-80.0); Platelet Count 191 K/mm3 (142-424); Red Blood Count 4.81 M/mm3 (4.20-5.40); Red Cell Distribution Width 15.3 % (11.5-17.5); White Blood Count 6.2 K/mm3 (4.8-10.8)
[2024-02-24 09:32] LABS: Chloride 110 mmol/L (98-107)
[2024-02-24 09:33] LABS: Potassium 4.3 mmoL/L (3.5-5.1); Sodium 141 mmol/L (136-145)
[2024-02-24 09:35] LABS: Anion Gap 10.3 mEq/L (5-15); Blood Urea Nitrogen 11 mg/dl (7-17); Carbon Dioxide 25 mmol/L (22.0-30.0); Estimated Glomerular Filt Rate 88 ml/min (>60); GFR (African American) 107 ML/MIN (>60)
[2024-02-24 09:36] LABS: Alanine Aminotransferase 26 U/L (12-78); Albumin/Globulin Ratio 1.4 (1.1-1.8); Alkaline Phosphatase 86 U/L (38-126); Aspartate Amino Transferase 25 U/L (14-36); Bilirubin,Total 0.5 mg/dl (0.2-1.3); Calcium 8.6 mg/dl (8.4-10.2); Globulin 2.8 g/dL (1.3-3.2); Glucose 166 mg/dl (74-100); Total Protein,Serum 6.8 g/dl (6.3-8.2)
[2024-02-24 10:05] LABS: HCG,Quantitative < 2 mIU/ml (0-5.42)
== END 2024-02-24 23:59 | disposition home or self-care (01) ==
LOC: LAB 08:25
PROVIDERS: PCP Family Medicine; Visit Provider Obstetrics & Gynecology
DX: R93.89 Abnormal findings on diagnostic imaging of other specified body structures (principal)
CPT/HCPCS: 36415; 80053; 84702; 85025

== ENCOUNTER 2024-03-01 10:46 | Day surgery (SDC) | payer OTHER, SELFPAY ==
--- NOTE | 2024-02-28 11:42 | SUR.PREOP ---
1142: Left message on pt's VM with call back number, arrival time, courtesy bus driver information and when to start NPO.
[2024-02-28 12:06] VITALS: BMI 34.6
[2024-03-01] VITALS (9 sets, daily range): BP systolic 130–161; BP diastolic 59–99; PULSE 62–79; RESP 14–18; TEMP 36.1–36.5; O2SAT 93–98
[2024-03-01] MEDS: LACTATED RINGERS 1000ML 1,000 ML 25 ML IV (11:25)
--- NOTE | 2024-03-01 13:07 | P.PNANES_ITS ---
[facility] Disclaimer: The information contained in this section may have been updated after the patient was seen, as this information can be updated by other users. Medical History Scoliosis No significant past medical history Surgical History History of hernia repair History of lung surgery History of laparoscopic cholecystectomy History of left ankle joint replacement Family History Mother Cancer Other Family history of alpha 1 antitrypsin deficiency Family history of diabetes mellitus Family history of stroke Lupus Social History Smoking Status: Never smoker alcohol intake: never substance use type: denies use current occupational status: unemployed Travel in the last 8 weeks: None household members: family housing: house caffeine: Yes [facility] Anesthesia Checklist Patient Identification Patient Identification: Arm Band and Verbal (Name & ) Structural Data Admitted From: Home Planned Operative Procedure/s: Hyst/D &C Consent for Planned Operative Procedure(s) Verified: Yes Verified Documents: Surgical Consent and History and Physical NPO Status Verified Time NPO: 00:00 Chart Verification Results Verified: CBC and BMP Additional verifications Anesthesia Reactions: No Hx Blood Transfusions: No Blood Transfusion Reaction: No Airway Assessment Mallampati Score:: Class II C-Spine Mobility Assessed: Yes TMJ Mobility Assessed: Yes Dentition: Good Dentition Neurological Assessment Level of Consciousness: Awake Hx Seizures: No Numbness or tingling in extremities: No Anesthesia Plan Anesthesia Risk discussed: Yes Anesthesia Plan: Verified ASA Class: II Anesthesia Type: General
[2024-03-01] MEDS: SODIUM CHLORIDE IRRIG SOLUTION 3,000 ML 3000 ML IR (13:35)
--- NOTE | 2024-03-01 13:57 | EXP.OP.NOTE ---
Date of procedure: 03/01/24 Pre-op Diagnosis:: 1. Abnormal uterine bleeding 2. Thickened endometrial stripe 3. Suspected endometrial polyps Post-op Diagnosis:: 1. Abnormal uterine bleeding 2. Thickened endometrial stripe 3. Confirmed endometrial polyps Procedure performed:: Hysteroscopy, dilation, and MyoSure polypectomy Surgeon:: Toya Panchal DO ADVANCED DEVELOPER:: Jon Severino Anesthesia: GETA Estimated blood loss (mL): 5 Operative findings:: Findings: -EUA revealed an 8-week anteverted uterus with regular contour. Grade 3 apical vaginal wall descent. No significant anterior posterior wall support defects. -Hysteroscopy revealed 2 endometrial polyps. Polyps were able to be removed in their entirety. Operative note:: The patient was taken back to the OR where general anesthesia was obtained.? She was placed in the dorsal lithotomy position using yellow fin stirrups and sterilely prepped and draped in the usual fashion.? An in and out catheter was used to drain her bladder.? A timeout was performed.? A weighted speculum was used to visualize this cervix, a single-tooth tenaculum was applied to the anterior lip of the cervix. The cervix was only slightly dilated to allow entry to the ectocervix and hydrodisection was used to get the scope the rest of the way into the cavity. The hysterscope was inserted and a large primarily pedunculated polyp was noted on the anterior uterine wall near the patient's right cornua. There was a second endometrial polyp on the posterior uterine wall this polyp had a broader base. Images were obtained of the cavity. Tubal ostia were visualized for orientation. Decision was made to proceed with the MyoSure for polypectomy. Device set up, primed and zeroed. The device was used to resect the outer edge of the polyp until the complete polyp was removed down to the base. At the conclusion of the procedure there was a fluid deficit of 875mLs on the device, however it is suspected that there were over 300mls under the patients bottom and on the floor. Total myosure cutting time was 1minutes 58seconds. Following complete removal of the polyps the MyoSure hysteroscope was removed.? The single-tooth tenaculum was removed and hemostasis was noted at the tenaculum sites.? All instruments were removed from the vagina.? All counts were correct, per nursing.? This concluded the procedure, the patient was awakened from anesthesia, and transferred to the PACU in stable condition. Condition: stable Disposition: PACU Specimens:: Endometrial polyps Complications:: None
--- NOTE | 2024-03-01 14:02 | P.PNANES_ITS ---
[facility] Anesthesia Record Part I Anesthesia Record I Intake, IV Amount: 800 Hydration: Adequate Estimated blood loss (mL): 25 Urine output (mL): 0 Blood Products used (#): none Blood Pressure: 138/91 SaO2: 98 Pulse Rate: 79 Airway Patency: Patent Respiratory Rate: 14 Temperature: 97.7 F Patient is:: Drowsy and Stable Stable to PACU at:: 13:55
--- NOTE | 2024-03-02 09:16 | P.PNANES_ITS ---
[facility] Anesthesia Record Part II Anesthesia Record Part II Discharge Time: 14:25 Destination: Surgical Day Care (OP Surgery) PACU nurse assessment reviewed?: Yes Patient Condition:: Good Anesthesia Complications:: None Swallowing reflex intact?: Yes Airway Patency: Patent Cyanosis?: No Blood Pressure: 146/99 SaO2: 93 Respiratory Rate: 17 Pulse Rate: 65 Temperature: 97.1 F Mental Status: Alert & Oriented Pain level:: 0 Nausea and/or vomitting:: None Intake, IV Amount: 0 Hydration: Adequate
[2024-03-02 09:17] VITALS: BP 146/99; PULSE 65; RESP 17; TEMP 36.2; O2SAT 93
== END 2024-03-01 14:56 | disposition home or self-care (01) ==
PROVIDERS: PCP Family Medicine; Visit Provider Obstetrics & Gynecology
PROC: (CPT 58558; principal; 2024-03-01 12:00)
DX: N93.9 Abnormal uterine and vaginal bleeding, unspecified (principal); R93.89 Abnormal findings on diagnostic imaging of other specified body structures; N84.0 Polyp of corpus uteri
CPT/HCPCS: 58558; J1100; J1885; J2250; J2405; J7120

== ENCOUNTER 2024-10-02 18:19 | Emergency (ER) | payer OTHER, SELFPAY ==
[2024-10-02 18:25] VITALS: BP 157/97; PULSE 68; RESP 18; TEMP 36.5; O2SAT 96; BMI 32.4
--- NOTE | 2024-10-02 18:31 | PC.NURSE ---
pt brought to RM 7 from triage. pt presents with a main complaint of hypothermia. pt states her temperature was 94.6 F temporal scan. pt is 98F orally upon arriving to her room. pt states she was seen at her PCP today and dx with borderline PNA. pt was called in zithromax and has taken her first dose. She states she also took 1gm tylenol about 3h ago. pt c/o a productive cough with yellow sputum, minimal SOA, N/V/D, and a JACOBSON. pt states her JACOBSON is 5/10 and generalized.
--- NOTE | 2024-10-02 18:40 | XR_ITS ---
PROCEDURE INFORMATION: Exam: XR Chest Exam date and time: 10/02/2024 7:36 PM Age: 54 years old Clinical indication: Shortness of breath; Additional info: Productive cough; SOA TECHNIQUE: Imaging protocol: Radiologic exam of the chest. Views: 2 views. COMPARISON: CR XR CHEST 2V 06/20/2022 10:33 PM FINDINGS: Lungs: Opacity in the right lower lobe Pleural spaces: Unremarkable. No pleural effusion. No pneumothorax. Heart/Mediastinum: Unremarkable. No cardiomegaly. Bones/joints: Unremarkable. IMPRESSION: Opacity in the right lower lobe may represent atelectasis or pneumonia
--- NOTE | 2024-10-02 18:53 | ED_ITS ---
<Statement entered by Asim Thornton MD - 10/02/24 23:21> I was consulted by the MADAY, and we discussed the complexity of the problems being addressed. I approved the treatment and management plan for this patient's care in the emergency department, thus performing a substantive portion of the medical decision making. Asim Thornton MD Discharge Plan Disposition Patient Disposition: Home, Self-Care Prescriptions Prescriptions: New doxycycline hyclate 100 mg capsule 100 mg PO BID 7 Days Qty: 14 0RF No Action fluconazole 150 mg tablet 150 mg PO Q3D Qty: 2 0RF Rx Instructions: Repeat dose in 72 hours. metronidazole 500 mg tablet 500 mg PO BID 7 Days Qty: 14 0RF loratadine [Claritin] 10 mg Tablet 10 mg PO DAILY ibuprofen 800 mg tablet 800 mg PO Q8H PRN (Reason: pain) Qty: 60 2RF acetaminophen 500 mg tablet 500 mg PO Q6H PRN (Reason: fever or pain) Qty: 30 3RF Referrals Follow up/Referrals: Lesly Alcala MD [Primary Care Provider] - See instructions Clinical Impressions Clinical Impression: Influenza A Instructions Patient Instructions: DI for Influenza -- Adult Print Language Print Language: Czech Discharge ED Provider: Asim Thornton General Adult HPI General Chief complaint: Upper Respiratory Infection Stated complaint: low temp,weakness,vomiting Time Seen by Provider: 10/02/24 18:47 Mode of Arrival: Ambulatory Source of Information: Patient Description of Symptoms (Recalled from ER Triage Doc. by RN): Pt presents with spouse for concerns of low temperature and concern of worsening pneumonia. Pt has had a productive cough, bodyaches, pt had 2 episodes of vomiting today. Spouse states temporal temp at home was 94.6. History of Present Illness HPI narrative: 54-year-old female presents to the emergency department accompanied by her for 3 days history of cough congestion sore throat body aches, shortness of breath, patient was seen by outside provider/PCP today and was diagnosed with pneumonia according to spouse at the bedside. She was given azithromycin and Tylenol. She is taken 1 dose of her azithromycin, she also endorses nausea vomiting, denies any real chest pain, denies headache, lightheadedness, denies any abdominal pain, denies urinary type symptomatology, denies melena hematochezia or hematemesis, other past medical history consistent with hernia, what sounds like a 1.5 lobectomy/pneumonectomy of unknown lung as a child due to trauma, is a former smoker, denies alcohol or drug use initial triage vitals unremarkable. Onset (ago): day(s) Related Data Home Medications ?Medication ?Instructions ?Recorded ?Confirmed loratadine 10 mg tablet (Claritin) 10 mg PO DAILY allergies 12/13/22 03/20/24 Previous Rx's ?Medication ?Instructions ?Recorded acetaminophen 500 mg tablet 500 mg PO Q6H PRN fever or pain 03/01/24 #30 tabs ibuprofen 800 mg tablet 800 mg PO Q8H PRN pain #60 tabs 03/01/24 fluconazole 150 mg tablet 150 mg PO Q3D #2 tabs 03/20/24 metronidazole 500 mg tablet 500 mg PO BID 7 days #14 tabs 03/22/24 doxycycline hyclate 100 mg capsule 100 mg PO BID 7 days #14 caps 10/02/24 Allergies Allergy/AdvReac Type Severity Reaction Status Date / Time No Known Allergies Allergy Verified 03/20/24 11:17 [facility] Disclaimer: The information contained in this section may have been updated after the patient was seen, as this information can be updated by other users. Medical History Scoliosis No significant past medical history Surgical History History of hernia repair History of lung surgery History of laparoscopic cholecystectomy History of left ankle joint replacement PIN IN PLACE Family History Mother Cancer Pancreatic Other Family history of alpha 1 antitrypsin deficiency Family history of diabetes mellitus Family history of stroke Lupus Social History Smoking Status: Never smoker alcohol intake: never substance use type: denies use current occupational status: unemployed Travel in the last 8 weeks: None household members: family housing: house caffeine: Yes Have you lived/traveled outside US in past 30 days?: No Contact w/someone who lives/traveled outside US past 30 days?: No Exposure to someone with infectious disease in past 14 days?: No Do you have a fever (greater than 100.4 F or 38 C)?: Yes Have you tested positive for COVID-19: No Exposed to someone with COVID-19 in past 14 days?: No Do you have a sore throat?: No Do you have a cough?: No Do you have any weakness?: Yes Do you have any diarrhea?: No Are you experiencing any unusual bleeding?: No Do you have any muscle aches/pain?: No Do you have any abdominal pain?: No Are you experiencing loss of taste or smell?: No Other Medical History Have you received the Flu Vaccine for this season: Yes Have you received the Pneumonia Vaccine: No ROS Obtained: Yes All systems reviewed & no additional complaints except as documented Physical Exam General General appearance: alert and in no apparent distress Head Head exam: atraumatic and normocephalic Eye Eye exam: Present PERRL and EOMI ENT ENT exam: Present mucous membranes moist Neck Neck exam: Present normal inspection Chest Chest inspection: Present normal inspection and symmetric chest wall rise Respiratory Respiratory exam: Present wheezes and other (Mild crackles and mild wheezes heard throughout bilateral lung sibley); Absent normal lung sounds bilaterally or respiratory distress Cardiovascular Cardiovascular exam: Present regular rate and normal rhythm Abdominal Exam Abdominal exam: Present soft; Absent tenderness, guarding, rebound or rigidity Extremities Exam Extremities exam: Present normal inspection Neurological Exam Neurological exam: Present alert and oriented X3 Psychiatric Psychiatric exam: Present normal affect Skin Skin exam: Present warm and dry Medical Decision Making Medical Records Medical records reviewed: Yes I reviewed the patient's medical records. Screening: Per USPSTF and CDC recommendations, given the prevalence of disease in our region, it is our hospital?s policy to screen for HIV and viral Hepatitis for all patients aged 18 and over and those with ongoing risk factors. Samy Inquiry Pt receiving controlled substance: No Samy was queried for this patient: No Vital Signs: 10/02/24 18:25 Temperature 97.7 F Temperature Source Oral Pulse Rate [Right] 68 Respiratory Rate 18 Blood Pressure [Right Arm] 157/97 H Blood Pressure Mean [Right Arm] 117 Blood Pressure Source [Right Arm] Automatic Cuff Blood Pressure Position [Right Arm] Sitting 02 Sat by Pulse Oximetry 96 Oxygen Delivery Method Room Air Lab Data Lab results reviewed: Yes I reviewed the patient's lab results. Lab Results 10/02/24 18:50: WBC 3.4 L, RBC 4.68, Hgb 12.6, Hct 38.6, MCV 82.5, MCH 26.9 L, MCHC 32.6, RDW 14.1, Plt Count 156, MPV 10.4, Neut % (Auto) 79.3, Lymph % (Auto) 13.6, Dare % (Auto) 6.5, Eos % (Auto) 0.0 L, Baso % (Auto) 0.3, Neut # (Auto) 2.7, Lymph # (Auto) 0.5 L, Dare # (Auto) 0.2, Eos # (Auto) 0.0, Baso # (Auto) 0.0, Sodium 137, Potassium 3.9, Chloride 104, Carbon Dioxide 28, Anion Gap 8.9, BUN 12, Creatinine 0.60, Estimated Creat Clear 158, Estimated GFR 105, Est GFR ( Amer) 127, Glucose 146 H, Calcium 8.2 L, Magnesium 2.2, Total Bilirubin 0.6, AST 31, ALT 28, Alkaline Phosphatase 63, Total Protein 7.4, Albumin 4.3, Globulin 3.1, Albumin/Globulin Ratio 1.4 10/02/24 19:10: SARS-CoV-2 (PCR) Not detected, Influenza A Untype (PCR) Detected A, Influenza Type B (PCR) Not detected 10/02/24 18:50 10/02/24 18:50 Orders (Tests/Meds): ED MEDICATIONS Discontinued Medications Generic Name Dose Route Start Last Admin Trade Name Freq PRN Reason Stop Dose Admin Ibuprofen 600 mg 10/02/24 19:50 10/02/24 19:54 Ibuprofen 600 Mg Tablet PO 10/02/24 19:51 600 mg ONCE ONE Administration Ondansetron HCl 4 mg 10/02/24 19:00 10/02/24 19:13 Ondansetron 4mg/2ml Vial IV 10/02/24 19:01 4 mg ONCE ONE Administration ORDERS Category Date Time Status Chest XR 2 view (NOT portable) [XR chest 2V] Stat Exams 10/02/24 18:40 Taken Complete Blood Count Auto Diff Stat Lab 10/02/24 18:50 Completed Comprehensive Metabolic Panel Stat Lab 10/02/24 18:50 Completed HIV Combo Stat Lab 10/02/24 18:50 Received Hepatitis C Ab Qual. W/ RFX Stat Lab 10/02/24 18:50 Received Magnesium Stat Lab 10/02/24 18:50 Completed Rapid PCR Covid and Flu A/B Stat Lab 10/02/24 19:10 Completed Medical Decision Narrative: 54-year-old female presents emergency department with shortness of breath and URI type symptomatology, differential diagnosis to include but not limited to, COVID-19, influenza, acute bronchitis, other URI, pneumonia, costochondritis, COPD exacerbation. I discussed patient case with attending physician Will obtain basic laboratory studies, magnesium level COVID-19 rapid antigen swab influenza A and B rapid antigen swab, will obtain chest x-ray, and will give 4 mg IV Zofran for nausea. CBC notable for leukopenia at 3.4 otherwise unremarkable. COVID-19 negative, influenza A is positive, influenza B is negative. Minimal hypocalcemia at 8.2 otherwise unremarkable CMP. Patient is complaining of headache, will give 600 mg ibuprofen for headache. I along with the attending physician reviewed the patient's chest x-ray, radiology report is not yet available for my interpretation, however there is some consolidations, patient is already being treated for community-acquired pneumonia as outpatient with azithromycin, she is already taken the first dose, will change to this treatment 100 mg p.o. doxycycline for 5 days, patient will follow-up with PCP as directed. Patient is otherwise remained hemodynamically stable without her time in the emergency department, also currently diagnosed with influenza A. Recommend supportive care for this. Follow-up in the outpatient clinic, return emerged part with any worsening signs or symptoms. No hypoxia, no tachycardia on discharge. Critical Care Critical Care Time Critical Care Time: No
[2024-10-02 19:01] LABS: Basophils % 0.3 % (0.1-2.0); Hematocrit 38.6 % (37.0-47.0); Hemoglobin 12.6 g/dL (12.2-16.2); Lymphocytes # 0.5 K/mm3 (0.7-4.5); Lymphocytes % 13.6 % (10-50); Mean Corpuscular HGB Conc 32.6 g/dL (31.8-35.4); Mean Corpuscular Hemoglobin 26.9 pg (27.0-31.2); Mean Corpuscular Volume 82.5 fl (81-99); Mean Platelet Volume 10.4 fl (7.4-10.4); Monocytes # 0.2 K/mm3 (0.1-1.0); Monocytes % 6.5 % (1.7-9.3); Neutrophils # 2.7 K/mm3 (1.8-7.8); Neutrophils % 79.3 % (37.0-80.0); Platelet Count 156 K/mm3 (142-424); Red Blood Count 4.68 M/mm3 (4.20-5.40); Red Cell Distribution Width 14.1 % (11.5-17.5); White Blood Count 3.4 K/mm3 (4.8-10.8)
[2024-10-02] MEDS: ONDANSETRON 4MG/2ML VIAL 4 MG IV (19:13)
[2024-10-02 19:16] LABS: Coronavirus 19, PCR Not Detected (NotDetected); Influenza B, PCR Not Detected (NotDetected)
[2024-10-02 19:32] LABS: Alanine Aminotransferase 28 U/L (12-78); Albumin Level 4.3 g/dl (3.5-5.0); Albumin/Globulin Ratio 1.4 (1.1-1.8); Alkaline Phosphatase 63 U/L (38-126); Anion Gap 8.9 mEq/L (5-15); Aspartate Amino Transferase 31 U/L (14-36); Bilirubin,Total 0.6 mg/dl (0.2-1.3); Blood Urea Nitrogen 12 mg/dl (7-17); Calcium 8.2 mg/dl (8.4-10.2); Carbon Dioxide 28 mmol/L (22.0-30.0); Chloride 104 mmol/L (98-107); Creatinine Clearance Estimated 158 mL/min (50-200); Estimated Glomerular Filt Rate 105 ml/min (>60); GFR (African American) 127 ML/MIN (>60); Globulin 3.1 g/dL (1.3-3.2); Glucose 146 mg/dl (74-100); Magnesium 2.2 mg/dl (1.6-2.3); Potassium 3.9 mmoL/L (3.5-5.1); Sodium 137 mmol/L (136-145); Total Protein,Serum 7.4 g/dl (6.3-8.2)
[2024-10-02 19:45] LABS: Influenza A, PCR Detected (NotDetected)
[2024-10-02] MEDS: IBUPROFEN 600 MG TABLET PO (19:54)
[2024-10-02 21:01] LABS: HIV Combo NEGATIVE (Negative)
[2024-10-02 21:09] VITALS: BP 130/97; PULSE 78; RESP 20; TEMP 36.1; O2SAT 99
[2024-10-02 21:09] LABS: Hepatitis C Ab Qual. W/ RFX NEGATIVE (Negative)
== END 2024-10-02 21:10 | disposition home or self-care (01) ==
PROVIDERS: Physician Assistant; Emergency Provider Emergency Medicine; PCP Family Medicine
DX: J10.1 Influenza due to other identified influenza virus with other respiratory manifestations (principal); R05.9 Cough, unspecified; R11.2 Nausea with vomiting, unspecified; R06.02 Shortness of breath; M79.10 Myalgia, unspecified site
CPT/HCPCS: 71046; 80053; 83735; 85025; 86803; 87389; 87636; 96374; 99283; J2405

== ENCOUNTER 2025-04-10 15:33 | Outpatient (CLI) | payer OTHER, SELFPAY ==
--- NOTE | 2025-04-10 15:30 | MM_ITS ---
PROCEDURE INFORMATION: Exam: MG Bilateral Screening 3D Mammography Exam date and time: 04/10/2025 3:33 PM Age: 54 years old Clinical indication: Screening examination. TECHNIQUE: Imaging protocol: Bilateral Screening tomosynthesis and 2D mammography including computer-aided detection (CAD) when performed. COMPARISON: 1. MG MM DIG MAMM DX UNILAT RT CAD 04/18/2023 2:28 PM 2. MG MM DIG SCREENING MAMM BI W/CAD 03/03/2023 11:03 AM FINDINGS: MAMMOGRAPHY: Breast composition: There are scattered areas of fibroglandular density. Mass: None. Architectural distortion: None. Calcifications: No suspicious calcifications. Asymmetric density: None. Skin thickening: None. Axillary adenopathy: None. IMPRESSION: No mammographic evidence of malignancy. Annual screening is recommended unless otherwise clinically indicated. ASSESSMENT: BI-RADS Category 1: Negative.
--- OUTSIDE RECORDS SUMMARY | 2025-04-10 15:35 | XMS_ITS | Clinical Summary ---
Author Organization [facility] Address [address] [place] [address] Care Team Providers Care Keysmith Name Role Phone Ramsey Morris MD Primary Care Provider [phone] Immunizations Immunization Administration Dates Next Due Influenza, injectable, quadrivalent 06/29/2017 Family History Medical History Relation Name Comments Pancreatic cancer Mother Relation Name Status Comments Mother Social History Tobacco Use Types Packs/Day Years Used Date Smoking Tobacco: Never Comments Unknown Sex and Gender Information Value Date Recorded Sex Assigned at Not on file Legal Sex Female 6:40 PM EDT Gender Identity Not on file Sexual Orientation Not on file Last Filed Vital Signs Vital Sign Reading Time Taken Comments Blood Pressure - - Pulse - - Temperature - - Respiratory Rate - - Oxygen Saturation - - Inhaled Oxygen Concentration - - Weight 84.8 kg (186 lb 15.9 oz) 017 10:13 AM EST Height 167.6 cm (5' 6 ) 06/29/2017 10:1 3 AM EST Body Mass Index 30.18 06/29/2017 10:13 AM EST Plan of Treatment Not on file Care Teams Keysmith Relationship Specialty Start Date End Date Ramsey Morris MD [address] [place] [address] [place] [address] PCP - General 12/05/20
== END 2025-04-10 23:59 | disposition home or self-care (01) ==
LOC: RAD 15:33
PROVIDERS: PCP Family Medicine; Visit Provider Obstetrics & Gynecology
DX: Z12.31 Encounter for screening mammogram for malignant neoplasm of breast (principal); R92.323 Mammographic fibroglandular density, bilateral breasts
CPT/HCPCS: 77063; 77067

== ENCOUNTER 2025-05-01 14:25 | Outpatient (CLI) | payer OTHER, SELFPAY ==
[2025-05-01 15:05] LABS: Hematocrit 41.2 % (37.0-47.0); Hemoglobin 13.0 g/dL (12.2-16.2); Immature Granulocytes % 0.1 %; Mean Corpuscular HGB Conc 31.6 g/dL (31.8-35.4); Mean Corpuscular Hemoglobin 26.5 pg (27.0-31.2); Mean Corpuscular Volume 84.1 fl (81-99); Nucleated Red Blood Cells % 0 %; Platelet Count 187 K/mm3 (142-424); Red Blood Count 4.90 M/mm3 (4.20-5.40); Red Cell Distribution Width-SD 42.6 fL; White Blood Count 6.8 K/mm3 (4.8-10.8)
[2025-05-01 15:44] LABS: Albumin Level 3.9 g/dl (3.5-5.0); Chloride 103 mmol/L (98-107); Potassium 3.6 mmoL/L (3.5-5.1); Sodium 142 mmol/L (136-145)
[2025-05-01 15:47] LABS: Alanine Aminotransferase 23 U/L (12-78); Albumin/Globulin Ratio 1.3 (1.1-1.8); Alkaline Phosphatase 97 U/L (38-126); Anion Gap 12.6 mEq/L (5-15); Aspartate Amino Transferase 22 U/L (14-36); Bilirubin,Total 0.4 mg/dl (0.2-1.3); Carbon Dioxide 30 mmol/L (22.0-30.0); Globulin 3.0 g/dL (1.3-3.2); Iron 63 ug/dL (37-170); Total Protein,Serum 6.9 g/dl (6.3-8.2)
[2025-05-01 15:48] LABS: Calcium 8.9 mg/dl (8.4-10.2); Glucose 119 mg/dl (74-100)
[2025-05-01 15:57] LABS: Total Iron Binding Capacity 324 ug/dL (265-497)
[2025-05-01 16:23] LABS: Ferritin 51.8 ng/ml (11.1-264)
[2025-05-01 16:45] LABS: Blood Urea Nitrogen 8 mg/dl (7-17); Creatinine,Serum 0.80 mg/dl (0.52-1.04); Estimated Glomerular Filt Rate 75 ml/min (>60); GFR (African American) 91 ML/MIN (>60)
[2025-05-03 14:12] LABS: CA 19-9 5 U/mL (0-35)
== END 2025-05-01 23:59 | disposition home or self-care (01) ==
LOC: LAB 14:26
PROVIDERS: PCP Family Medicine; Visit Provider Internal Medicine Gastroenterology
DX: R14.0 Abdominal distension (gaseous) (principal); Z80.0 Family history of malignant neoplasm of digestive organs; Z83.79 Family history of other diseases of the digestive system; K74.69 Other cirrhosis of liver; B19.20 Unspecified viral hepatitis C without hepatic coma
CPT/HCPCS: 36415; 80053; 82103; 82104; 82728; 83540; 83550; 85025; 86301

== ENCOUNTER 2025-05-05 14:18 | Outpatient (CLI) | payer OTHER, SELFPAY ==
--- OUTSIDE RECORDS SUMMARY | 2025-05-05 14:21 | XMS_ITS | Clinical Summary ---
Author Organization [facility] Address [address] [place] [address] Care Team Providers Care Photo Engraver Name Role Phone Ramsey Morris MD Primary Care Provider [phone] Immunizations Immunization Administration Dates Next Due Influenza, [...] of Treatment Not on file Care Teams Photo Engraver Relationship Specialty Start Date End Date Ramsey Morris MD [address] [place] [address] [place] [address] PCP - General 12/05/20
[2025-05-08 03:39] LABS: Pancreatic Elastase, Fecal >800 (>200)
== END 2025-05-05 23:59 | disposition home or self-care (01) ==
LOC: LAB.DROPOF 14:19
PROVIDERS: PCP Internal Medicine Gastroenterology; Visit Provider Internal Medicine Gastroenterology
DX: R14.0 Abdominal distension (gaseous) (principal); Z83.79 Family history of other diseases of the digestive system
CPT/HCPCS: 82103; 82653

== ENCOUNTER 2025-05-22 07:36 | Outpatient (CLI) | payer OTHER, SELFPAY ==
--- OUTSIDE RECORDS SUMMARY | 2025-05-22 07:39 | XMS_ITS | Clinical Summary ---
Author Organization [facility] Address [address] [place] [address] Care Team Providers Care Exterior Interior Specialist Name Role Phone Ramsey Morris MD Primary Care Provider [phone] Immunizations Immunization Administration Dates Next Due Influenza, [...] of Treatment Not on file Care Teams Exterior Interior Specialist Relationship Specialty Start Date End Date Ramsey Morris MD [address] [place] [address] [place] [address] PCP - General 12/05/20
--- NOTE | 2025-05-22 08:00 | MR_ITS ---
FINAL REPORT CLINICAL HISTORY: Sister and mother with pancreatic cancer in 40s COMPARISON: CT dated 06/20/2022 FINDINGS: Multiplanar MR imaging of the abdomen was obtained with and without contrast. The liver parenchyma is homogeneous. No localized signal abnormalities are identified. The gallbladder is surgically absent. There is no biliary ductal dilatation. The spleen, pancreas, adrenals, and kidneys are unremarkable. There is no evidence of abnormal contrast-enhancement. No masses are identified. There is a moderate moderate stool throughout the colon. IMPRESSION: No acute intra-abdominal abnormality. Moderate stool burden. Reviewed, Interpreted and Dictated by Ge Arguello MD Transcribed by Monika Mark Authenticated and [facility]
[2025-05-22] MEDS: GADOTERIDOL INJ 20ML SYRINGE 19 ML IV (08:31)
[2025-05-22] MEDS: SODIUM CHLORIDE 0.9% 10ML SYR (RAD ONLY) 10 ML IV (08:31)
[2025-05-22] MEDS: 0.9 % SODIUM CHLORIDE 50 ML VIAL 20 ML IV (08:31)
== END 2025-05-22 23:59 | disposition home or self-care (01) ==
PROVIDERS: PCP Internal Medicine Gastroenterology; Visit Provider Internal Medicine Gastroenterology
DX: R93.3 Abnormal findings on diagnostic imaging of other parts of digestive tract (principal); Z80.0 Family history of malignant neoplasm of digestive organs
CPT/HCPCS: 74183; A9576

== ENCOUNTER 2025-07-10 07:53 | Day surgery (SDC) | payer OTHER, SELFPAY ==
--- NOTE | 2025-07-04 17:11 | EXP.HP ---
History of Present Illness *Admission Date: 07/10/25 *History of present illness: Mr. Mark is a 54-year-old female who is here for initial screening colonoscopy. The patient reports no rectal bleeding, weight loss, change in bowel habits or family history of colon cancer. She does state that her sister (age 44) and mother (in early 40s) both had pancreatic cancer. The patient also states that her father, paternal uncle and paternal grandmother had cirrhosis. The patient has never had a colonoscopy. She does have some gassiness, bloating, lower abdominal cramps and occasional diarrhea. The examination is deemed medically necessary for screening colonoscopy. The patient has been seen, interviewed and examined prior to the procedure by both myself and the anesthesia provider. [facility] Disclaimer: The information contained in this section may have been updated after the patient was seen, as this information can be updated by other users. Medical History Gastroenteritis HUSSAIN (stress urinary incontinence, female) Scoliosis Surgical History History of hernia repair History of lung surgery History of laparoscopic cholecystectomy History of left ankle joint replacement PIN IN PLACE Family History Mother Cancer Pancreatic Pancreatic cancer Sister Cancer pancreatic Pancreatic cancer Other Family history of alpha 1 antitrypsin deficiency Family history of diabetes mellitus Family history of stroke Lupus Social History Smoking Status: Never smoker alcohol intake: never substance use type: denies use current occupational status: unemployed Travel in the last 8 weeks?: None household members: family housing: house caffeine: Yes Have you lived/traveled outside US in past 30 days?: No Contact w/someone who lives/traveled outside US past 30 days?: No Exposure to someone with infectious disease in past 14 days?: No Do you have a fever (greater than 100.4 F or 38 C)?: No Have you tested positive for COVID-19?: No Exposed to someone with COVID-19 in past 14 days?: No Do you have a sore throat?: No Do you have a cough?: No Do you have any weakness?: No Do you have any diarrhea?: No Are you experiencing any unusual bleeding?: No Do you have any muscle aches/pain?: No Do you have any abdominal pain?: No Are you experiencing loss of taste or smell?: No Other Medical History Have you received the Flu Vaccine for this season: Yes Have you received the Pneumonia Vaccine: No Review of Systems Review of Systems Review of systems (narrative): Negative *Cardiovascular Comments: Negative *Gastrointestinal Comments: Negative *Genitourinary Comments: Negative *Musculoskeletal Comments: Negative *Neurologic Comments: Negative Meds Home Medications and Allergies Home Medications ?Medication ?Instructions ?Recorded ?Confirmed ?Type loratadine 10 mg tablet (Claritin) 10 mg PO DAILY allergies 12/13/22 07/10/25 History acetaminophen 500 mg tablet 500 mg PO Q6H PRN fever or pain 03/01/24 07/10/25 Rx #30 tabs ibuprofen 800 mg tablet 800 mg PO Q8H PRN pain #60 tabs 03/01/24 07/10/25 Rx sodium,potassium,mag sulfates 17.5 See Rx Instructions PO .COMPLEX 06/27/25 07/09/25 Rx gram-3.13 gram-1.6 gram oral soln #354 mL (Suprep Bowel Prep Kit) New Prescriptions to Start Prescriptions: Allergies Allergy/AdvReac Type Severity Reaction Status Date / Time No Known Allergies Allergy Verified 07/09/25 13:11 Exam *Routine HEENT Exam Head: Present normocephalic Eye: Present EOMI and PERRL ENT: Present mucous membranes moist *Routine Neck Exam Neck: Present supple *Routine Respiratory Exam Respiratory: Present CTA bilaterally *Routine Cardiovascular Exam Cardiovascular: Present RRR *Routine Abdominal Exam Abdominal: Present soft and normoactive bowel sounds; Absent tenderness *Routine Rectal Exam Rectal:: deferred *Routine Genitalia Exam Genitalia:: deferred *Routine Extremities Exam Extremities: Absent cyanosis, clubbing or edema *Routine Skin Exam Skin: Present warm; Absent rash *Routine Neurological Exam Neurological: Present alert and oriented X3 Assessment and Plan *Assessment and plan (1) Screening for colon cancer: Status: Acute Category: Medical Code(s): Z12.11 - Encounter for screening for malignant neoplasm of colon Plan A/P: 1. Screening for colon cancer is the preprocedural diagnosis. The patient will be anesthetized/sedated using MAC sedation. The patient has been seen and examined. Cardiac and lung assessment prior to the examination is stable. Proceed with planned screening colonoscopy.
[2025-07-09 13:14] VITALS: BMI 31.4
--- NOTE | 2025-07-10 07:05 | HMH.PROCNOTE ---
[facility] Procedure Note Date: 07/10/25 Time: 09:47 Procedure Note:: Colonoscopy Procedure Report: Colonoscopy with cold snare polypectomy Endoscopist: González Alfonso II, MD Referring physician: Chas Alcala M.D. Date of Procedure: July 10, 2025 Equipment: Olympus [id number] adult colonoscope Sedation: MAC sedation Indication: Mr. Mark is a 54-year-old female who is here for initial screening colonoscopy. The patient reports no rectal bleeding, weight loss, change in bowel habits or family history of colon cancer. She does state that her sister (age 44) and mother (in early 40s) both had pancreatic cancer. The patient also states that her father, paternal uncle and paternal grandmother had cirrhosis. The patient has never had a colonoscopy. She does have some gassiness, bloating, lower abdominal cramps and occasional diarrhea. The patient's pancreatic fecal elastase testing was normal (greater than 800 mcg/g). The examination is deemed medically necessary for screening colonoscopy. Procedure: Prior to the procedure, a history and physical exam was performed, and patient's medications and allergies were reviewed. The risks, benefits and alternatives of the sedation and procedure were discussed with the patient. All questions were answered and informed consent was obtained. The patient was brought to the procedure room. Patient identification and proposed procedure were verified by the physician and the nurse. The patient was placed in a left lateral decubitus position and the scope was passed under direct vision. Throughout the procedure, the patient's blood pressure, pulse, and oxygen saturations were monitored continuously. The colonoscopy was accomplished without difficulty. The patient tolerated the procedure well. Findings: On digital rectal examination there was normal rectal tone. There were no external hemorrhoids. The colonoscope was introduced through the anal canal to the rectum and advanced to the cecum. The ileocecal valve and appendiceal orifice were identified. The scope was advanced a short distance into the ileum which appeared grossly normal. The scope was then withdrawn into the colon. There was a single 5 mm polyp in the cecum removed via cold snare polypectomy. The remaining cecum, ascending and transverse colon and mucosa were grossly normal. There were mildly scattered diverticuli throughout the descending and sigmoid colon (LEFT colon). The rectum itself was normal. Upon retroflexion within the rectum there were grade 1-2 internal hemorrhoids. The preparation was excellent throughout with [place] Preparation Score of 9. The cecal time was 12 minutes. Impression: 1. Cecal polyp (5 mm) 2. Mild left-sided diverticulosis 3. Grade 1-2 internal hemorrhoids Plan: I will follow-up the polyp histology and recommend repeat screening/surveillance colonoscopy again in 7 years if the polyp is adenomatous.
[2025-07-10 08:44] VITALS: BP 140/91; PULSE 76; RESP 16; TEMP 36.7; O2SAT 96
[2025-07-10] MEDS: LACTATED RINGERS 1000ML 1,000 ML 50 ML IV (09:01)
--- NOTE | 2025-07-10 09:28 | EXP.ANES.CKL ---
[facility] Disclaimer: The information contained in this section may have been updated after the patient was seen, as this information can be updated by other users. Medical History Gastroenteritis HUSSAIN (stress urinary incontinence, female) Scoliosis Surgical History History of hernia repair History of lung surgery History of laparoscopic cholecystectomy History of left ankle joint replacement PIN IN PLACE Family History Mother Cancer Pancreatic Pancreatic cancer Sister Cancer pancreatic Pancreatic cancer Other Family history of alpha 1 antitrypsin deficiency Family history of diabetes mellitus Family history of stroke Lupus Social History Smoking Status: Never smoker alcohol intake: never substance use type: denies use current occupational status: unemployed Travel in the last 8 weeks?: None household members: family housing: house caffeine: Yes Have you lived/traveled outside US in past 30 days?: No Contact w/someone who lives/traveled outside US past 30 days?: No Exposure to someone with infectious disease in past 14 days?: No Do you have a fever (greater than 100.4 F or 38 C)?: No Have you tested positive for COVID-19?: No Exposed to someone with COVID-19 in past 14 days?: No Do you have a sore throat?: No Do you have a cough?: No Do you have any weakness?: No Do you have any diarrhea?: No Are you experiencing any unusual bleeding?: No Do you have any muscle aches/pain?: No Do you have any abdominal pain?: No Are you experiencing loss of taste or smell?: No [facility] Anesthesia Checklist Patient Identification Patient Identification: Arm Band Structural Data Admitted From: Home Planned Operative Procedure/s: Colonoscopy Consent for Planned Operative Procedure(s) Verified: Yes Verified Documents: Surgical Consent and History and Physical NPO Status Verified Time NPO: 00:00 Additional verifications Anesthesia Reactions: No Hx Blood Transfusions: No Blood Transfusion Reaction: No Airway Assessment Mallampati Score:: Class II C-Spine Mobility Assessed: Yes TMJ Mobility Assessed: Yes Dentition: Good Dentition Neurological Assessment Level of Consciousness: Awake, Alert and Appropriate Anesthesia Plan Anesthesia Risk discussed: Yes Anesthesia Plan: Verified ASA Class: II Anesthesia Type: MAC
[2025-07-10 09:47] VITALS: BP 114/72; PULSE 74; RESP 18; TEMP 36.2; O2SAT 96
[2025-07-10 10:02] VITALS: BP 123/72; PULSE 64; RESP 18; TEMP 36.2; O2SAT 97
[2025-07-10 10:17] VITALS: BP 116/72; PULSE 62; RESP 18; TEMP 36.2; O2SAT 96
== END 2025-07-10 10:38 | disposition home or self-care (01) ==
PROVIDERS: PCP Family Medicine; Visit Provider Internal Medicine Gastroenterology
PROC: 0DJD8ZZ Inspection of Lower Intestinal Tract, Via Natural or Artificial Opening Endoscopic (ICD-10-PCS; CPT 45378; principal; 2025-07-10 09:30)
DX: Z12.11 Encounter for screening for malignant neoplasm of colon (principal); K57.30 Diverticulosis of large intestine without perforation or abscess without bleeding; K64.1 Second degree hemorrhoids; D12.0 Benign neoplasm of cecum; R14.3 Flatulence; R10.30 Lower abdominal pain, unspecified; R19.7 Diarrhea, unspecified; Z90.49 Acquired absence of other specified parts of digestive tract; Z96.661 Presence of right artificial ankle joint
CPT/HCPCS: 45385; J2003; J2704; J7120